=== PATIENT | male | born 1955 | race Caucasian/White ===

== ENCOUNTER → 2019-05-19 | Outpatient (CLI) | payer OTHER | END | disposition home or self-care (01) | LOC: OIH 10:25 | PROVIDERS: ATTEND Internal Medicine Cardiovascular Disease | DX: R91.1 Solitary pulmonary nodule (principal); R06.00 Dyspnea, unspecified | CPT/HCPCS: 71046 ==

== ENCOUNTER 2022-06-17 08:04 | Day surgery (SDC) | payer MEDICARE ==
[~2022-06-17] VITALS: Ht 188 cm; Wt 139.4 kg
[2022-06-17 09:27] LABS: BASOPHILS % (AUTO) 0.6 % (0.0-5.0); EOSINOPHILS % (AUTO) 1.2 % (0.0-8.0); HEMATOCRIT 45.8 % (42-54); MEAN CORPUSCULAR HEMOGLOBIN 34.3 pg (27.0-33.0); MEAN CORPUSCULAR HGB CONC 31.4 g/dL (32.0-36.0); MONOCYTES % (AUTO) 10.2 % (3.0-13.0); NEUTROPHILS % (AUTO) 76.3 % (40.0-77.0); PLATELET COUNT (AUTO) 160 K/uL (130-400); RED CELL DISTRIBUTION WIDTH 14.6 % (11.0-15.5); WHITE BLOOD COUNT (AUTO) 6.8 K/uL (4.8-10.8)
[2022-06-17 09:36] LABS: POTASSIUM 5.3 mmol/L (3.5-5.1)
[2022-06-17 09:38] LABS: CREATININE 8.8 mg/dL (0.5-1.5)
[2022-06-17 09:48] LABS: INR 0.99 (0.85-1.15); PROTHROMBIN TIME 10.8 SEC (9.6-11.6)
[2022-06-17 09:57] LABS: B-TYPE NATRIURETIC PEPTIDE 89 pg/mL (0-100)
[2022-06-17 10:17] VITALS: BP 143/72
[2022-06-17] MEDS ORDERED: LANT500T2 PO (14:11)
[2022-06-17] MEDS ORDERED: ASPI-1197 PO (14:11)
[2022-06-17] MEDS ORDERED: ATOR-2 PO (14:11)
[2022-06-17] MEDS ORDERED: TRAM100T40 PO (14:11)
[2022-06-17] MEDS ORDERED: ISOS30TA11 PO (14:11)
[2022-06-17] MEDS ORDERED: BUME2TAB5 PO (14:11)
[2022-06-17] MEDS ORDERED: CETI10TA57 PO (14:11)
[2022-06-17] MEDS ORDERED: UBID10CA6 PO (14:11)
[2022-06-17] MEDS ORDERED: FOLI0.8T2 PO (14:11)
[2022-06-17] MEDS ORDERED: GABA-529 PO (14:11)
[2022-06-17] MEDS ORDERED: INSLAN SQ (14:11)
[2022-06-17] MEDS ORDERED: L.AC1CAP6 PO (14:11)
[2022-06-17] MEDS ORDERED: OMEP20CA12 PO (14:11)
[2022-06-17] MEDS ORDERED: [UNRECOGNIZED DRUG - CODE] SQ (14:11)
[2022-06-17] MEDS ORDERED: SEVE800T7 PO (14:11)
[2022-06-17] MEDS ORDERED: CLON0.5T4 PO (14:11)
[2022-06-17] MEDS ORDERED: SILD25TA PO (14:11)
[2022-06-17] MEDS ORDERED: INSU100V SQ (14:11)
[2022-06-17] MEDS ORDERED: CARB1TAB35 PO (14:11)
[2022-06-17] MEDS ORDERED: ALLO300T2 PO (14:11)
[2022-06-17] MEDS ORDERED: ROPI4TAB6 PO (14:12)
[2022-06-19] VITALS (9 sets, daily range): BP systolic 112–148; BP diastolic 64–83
[2022-06-19] MEDS ORDERED: 0.9%NACL 1000ML 1,000 ML IV ONE (08:40)
[2022-06-19 08:50] LABS: CREATININE 7.7 mg/dL (0.5-1.5); POTASSIUM 4.6 mmol/L (3.5-5.1)
[2022-06-19] MEDS ORDERED: MELA1TAB28 PO (09:37)
[2022-06-19] MEDS ORDERED: LIDOCAINE HCL 400MG/20ML VIAL ONE (11:20)
[2022-06-19] MEDS ORDERED: IOHEXOL-350 75 ML VIAL IV ONE (11:20)
[2022-06-19] MEDS ORDERED: FENTANYL CITRATE PF 50 MCG/1 ML 2ML VIAL ONE (11:20)
[2022-06-19] MEDS ORDERED: HEPARIN 10,000 UNIT/10ML (1,000 UNIT/ML) VIAL ONE (11:20)
[2022-06-19] MEDS ORDERED: MIDAZOLAM HCL 1 MG/ML 2ML VIAL ONE (11:20)
[2022-06-19] MEDS ORDERED: SODIUM BICARB 50MEQ 50ML VIAL 50 ML ONE (11:20)
[2022-06-19] MEDS ORDERED: NITROGLYCERIN 50MG VIAL ONE (11:21)
[2022-06-19] MEDS ORDERED: IOHEXOL-350 50ML VIAL IV ONE (12:26)
== END 2022-06-19 19:00 | disposition home or self-care (01) ==
LOC: DAH 08:04
PROVIDERS: ATTEND Internal Medicine Cardiovascular Disease
DX: I35.0 Nonrheumatic aortic (valve) stenosis (principal); I25.119 Atherosclerotic heart disease of native coronary artery with unspecified angina pectoris; I27.20 Pulmonary hypertension, unspecified; I48.0 Paroxysmal atrial fibrillation; E11.22 Type 2 diabetes mellitus with diabetic chronic kidney disease; I13.2 Hypertensive heart and chronic kidney disease with heart failure and with stage 5 chronic kidney disease, or end stage renal disease; N18.6 End stage renal disease; I50.42 Chronic combined systolic (congestive) and diastolic (congestive) heart failure; E11.42 Type 2 diabetes mellitus with diabetic polyneuropathy; E11.59 Type 2 diabetes mellitus with other circulatory complications; K21.9 Gastro-esophageal reflux disease without esophagitis; J44.9 Chronic obstructive pulmonary disease, unspecified; I87.2 Venous insufficiency (chronic) (peripheral); E66.9 Obesity, unspecified; Z79.899 Other long term (current) drug therapy; Z79.01 Long term (current) use of anticoagulants; Z99.2 Dependence on renal dialysis; Z79.4 Long term (current) use of insulin; Z79.82 Long term (current) use of aspirin; Z82.49 Family history of ischemic heart disease and other diseases of the circulatory system; Z83.3 Family history of diabetes mellitus; Z88.8 Allergy status to other drugs, medicaments and biological substances; Z72.89 Other problems related to lifestyle; Z68.41 Body mass index [BMI] 40.0-44.9, adult
CPT/HCPCS: 80048 ×2; 83880; 85025; 85610; 85730; 82948 ×2; 36415 ×2; 71045; 93005; 93460; 93571; 93572 ×2; C1769 ×2; C1887 ×2; C1894 ×3; C1760; J3010; J3490 ×3; J7030; J1644 ×2; J2250; Q9967 ×2; A4215; A4222; A4221; A4663; A4216; A4606; A4223 ×3; 99156; 99157

== ENCOUNTER 2022-07-08 06:26 | Day surgery (SDC) | payer MEDICARE ==
[2022-07-04 13:03] LABS: BASOPHILS % (AUTO) 0.6 % (0.0-5.0); EOSINOPHILS % (AUTO) 1.3 % (0.0-8.0); HEMATOCRIT 44.8 % (42-54); MEAN CORPUSCULAR HEMOGLOBIN 33.9 pg (27.0-33.0); MEAN CORPUSCULAR VOLUME 109.3 fL (79-99); MONOCYTES % (AUTO) 9.7 % (3.0-13.0); NEUTROPHILS % (AUTO) 73.2 % (40.0-77.0); PLATELET COUNT (AUTO) 166 K/uL (130-400); RED CELL DISTRIBUTION WIDTH 14.8 % (11.0-15.5); WHITE BLOOD COUNT (AUTO) 6.8 K/uL (4.8-10.8)
[2022-07-04 13:15] LABS: INR 0.98 (0.85-1.15); PROTHROMBIN TIME 10.7 SEC (9.6-11.6)
[2022-07-04 13:16] LABS: POTASSIUM 4.5 mmol/L (3.5-5.1)
[2022-07-04 13:17] LABS: PARTIAL THROMBOPLASTIN TIME 28.5 SEC (26.3-35.5)
[2022-07-04 13:34] LABS: B-TYPE NATRIURETIC PEPTIDE 101 pg/mL (0-100); CREATININE 10.2 mg/dL (0.5-1.5)
[~2022-07-08] VITALS: Ht 190.5 cm; Wt 68.8 kg
[2022-07-08] VITALS (11 sets, daily range): BP systolic 101–143; BP diastolic 65–81
[~2022-07-08 06:26] MED LIST: ALLO300T2 PO; ASPI-1197 PO; ATOR-2 PO; BUME2TAB5 PO; CARB1TAB35 PO; CETI10TA57 PO; CLON0.5T4 PO; FOLI0.8T2 PO; GABA-529 PO; INSLAN SQ; INSU100V SQ; ISOS30TA11 PO; L.AC1CAP6 PO; LANT500T2 PO; MELA1TAB28 PO; OMEP20CA12 PO; ROPI4TAB6 PO; SEVE800T7 PO; SILD25TA PO; TRAM100T40 PO; UBID10CA6 PO; [UNRECOGNIZED DRUG - CODE] SQ
[2022-07-08] MEDS ORDERED: 0.9%NACL 1000ML 1,000 ML IV ONE (07:08)
[2022-07-08] MEDS ORDERED: BIVALIRUDIN 250 MG/VIAL IV ONE (08:48)
[2022-07-08] MEDS ORDERED: HEPARIN 10,000 UNIT/10ML (1,000 UNIT/ML) VIAL ONE ×2 (08:48→09:50)
[2022-07-08] MEDS ORDERED: IOHEXOL 350 MG/ML 100ML INFUS..BTL IV ONE ×2 (08:48→10:38)
[2022-07-08] MEDS ORDERED: LIDOCAINE HCL 400MG/20ML VIAL ONE (08:48)
[2022-07-08] MEDS ORDERED: IOHEXOL-350 50ML VIAL IV ONE (08:48)
[2022-07-08] MEDS ORDERED: FENTANYL CITRATE PF 50 MCG/1 ML 2ML VIAL ONE (08:51)
[2022-07-08] MEDS ORDERED: MIDAZOLAM HCL 1 MG/ML 2ML VIAL ONE (08:52)
[2022-07-08] MEDS ORDERED: TICAGRELOR 90 MG TABLET ONE (09:53)
[2022-07-08] MEDS ORDERED: CLOPIDOGREL 300MG TAB PO SCH (11:30)
[2022-07-08] MEDS ORDERED: AEC81 PO (11:36)
[2022-07-08] MEDS ORDERED: CLOP75TA32 PO (11:36)
[2022-07-08] MEDS ORDERED: FAMO40TA7 PO (11:36)
[2022-07-09] MEDS ORDERED: ASPIRIN 81MG CHEW TAB PO SCH (09:00)
[2022-07-09] MEDS ORDERED: CLOPIDOGREL 75MG TAB PO SCH (09:00)
== END 2022-07-08 15:59 | disposition home or self-care (01) ==
LOC: DAH 06:26
PROVIDERS: ATTEND Internal Medicine Cardiovascular Disease
DX: I35.0 Nonrheumatic aortic (valve) stenosis (principal); I25.110 Atherosclerotic heart disease of native coronary artery with unstable angina pectoris; E11.22 Type 2 diabetes mellitus with diabetic chronic kidney disease; I13.2 Hypertensive heart and chronic kidney disease with heart failure and with stage 5 chronic kidney disease, or end stage renal disease; N18.6 End stage renal disease; I50.32 Chronic diastolic (congestive) heart failure; J44.9 Chronic obstructive pulmonary disease, unspecified; E66.01 Morbid (severe) obesity due to excess calories; I48.0 Paroxysmal atrial fibrillation; K21.9 Gastro-esophageal reflux disease without esophagitis; I87.2 Venous insufficiency (chronic) (peripheral); Z98.52 Vasectomy status; Z95.5 Presence of coronary angioplasty implant and graft; Z99.2 Dependence on renal dialysis; Z98.84 Bariatric surgery status; Z72.89 Other problems related to lifestyle; Z68.41 Body mass index [BMI] 40.0-44.9, adult; Z98.890 Other specified postprocedural states; Z79.01 Long term (current) use of anticoagulants; Z79.899 Other long term (current) drug therapy; Z79.82 Long term (current) use of aspirin; Z82.49 Family history of ischemic heart disease and other diseases of the circulatory system; Z83.3 Family history of diabetes mellitus
CPT/HCPCS: 80048; 83880; 85025; 85610; 85730; 36415; 71045; 93005; 92978; 0715T; 85347; 82948; C1761 ×3; A4223 ×3; C1887; C1894 ×3; C1760; C1753; C1874 ×3; C1769; Q9965 ×3; J3010; J3490; J7030; J1644 ×3; J2250; Q9967 ×2; A4215; A4222; A4221; A4663; A4216; A4606; C9600; 99156; 99157; J0583

== ENCOUNTER 2023-03-25 08:23 | Emergency (ER) | payer MEDICARE ==
[~2023-03-25] VITALS: Ht 188 cm; Wt 153.8 kg
[~2023-03-25 08:23] MED LIST changes: +AEC81 PO; -ASPI-1197 PO; +CALC667T6 PO; -CLON0.5T4 PO; +CLOP75TA32 PO; +FAMO40TA7 PO; -INSU100V SQ; -L.AC1CAP6 PO; +LANT10005 PO; -LANT500T2 PO; -MELA1TAB28 PO; -OMEP20CA12 PO; +ROPI4TAB41 PO; -ROPI4TAB6 PO; -SEVE800T7 PO; -SILD25TA PO; -TRAM100T40 PO; -UBID10CA6 PO; -[UNRECOGNIZED DRUG - CODE] SQ
[2023-03-25 08:54] LABS: HEMATOCRIT 39.9 % (42-54); MEAN CORPUSCULAR HEMOGLOBIN 31.5 pg (27.0-33.0); MEAN CORPUSCULAR HGB CONC 31.1 g/dL (32.0-36.0); MEAN CORPUSCULAR VOLUME 101.3 fL (79-99); NUCLEATED RED BLOOD CELLS 0.8 % (0.0-0.19); RED BLOOD CELL COUNT(AUTO) 3.94 MIL/uL (4.50-6.20); RED CELL DISTRIBUTION WIDTH 16.4 % (11.0-15.5); WHITE BLOOD COUNT (AUTO) 9.2 K/uL (4.8-10.8)
[2023-03-25] MEDS ORDERED: ALBUTEROL 0.083% 2.5 MG/3 ML INH IH ONE (09:00)
[2023-03-25] MEDS: SODIUM BICARB 50MEQ 50ML VIAL IV ONE ×2 (09:01→10:00)
[2023-03-25] MEDS: CALCIUM GLUC 1GM/10ML VIAL IVPB SCH ×2 (09:03→10:00)
[2023-03-25] MEDS: DEXTROSE 50%-WATER 50 ML DISP.SYRIN IV ONE ×2 (09:04→09:59)
[2023-03-25] MEDS: INSULIN HUMULIN R 100 UNIT/ML 3ML SQ ONE ×2 (09:04→10:00)
[2023-03-25 09:15] VITALS: PULSE 76; RESP 21
[2023-03-25 09:20] LABS: CREATININE 9.4 mg/dL (0.5-1.5); POTASSIUM 4.4 mmol/L (3.5-5.1); THYROID STIMULATING HORMONE 2.03 uIU/mL (0.36-3.74)
[2023-03-25 09:49] VITALS: BP 95/44; PULSE 86; RESP 20; O2SAT 99
[2023-03-26] MEDS ORDERED: DIPH25CA53 PO (10:46)
[2023-03-26] MEDS ORDERED: CARB-38 PO (10:46)
[2023-03-26] MEDS ORDERED: CALC0.5C11 PO (10:46)
[2023-03-26] MEDS ORDERED: ALLO300T2 PO (10:46)
[2023-03-26] MEDS ORDERED: SACC250C3 PO (10:46)
== END 2023-03-25 10:16 | disposition home or self-care (01) ==
LOC: EDH 08:23
DX: I12.0 Hypertensive chronic kidney disease with stage 5 chronic kidney disease or end stage renal disease (principal); E11.22 Type 2 diabetes mellitus with diabetic chronic kidney disease; N18.6 End stage renal disease; I48.91 Unspecified atrial fibrillation; E78.00 Pure hypercholesterolemia, unspecified; Z99.2 Dependence on renal dialysis; Z79.82 Long term (current) use of aspirin; Z79.899 Other long term (current) drug therapy; Z88.6 Allergy status to analgesic agent; Z98.890 Other specified postprocedural states
CPT/HCPCS: 99284; 84443; 83735; 80048; 85027; 36415; 94640; J1815; J0610; J3490; J7070

== ENCOUNTER 2023-04-28 13:39 | Inpatient (IN) | payer MEDICARE ==
[~2023-04-28] VITALS: Ht 188 cm; Wt 159.3 kg
[~2023-04-28 13:39] MED LIST changes: +CALC0.5C11 PO; -CALC667T6 PO; +CARB-38 PO; -CARB1TAB35 PO; +DIPH25CA53 PO; -ISOS30TA11 PO; +SACC250C3 PO
[2023-04-28 15:42] VITALS: BP 148/64; PULSE 70; RESP 20
[2023-04-28 16:03] VITALS: O2SAT 97
[2023-04-28] MEDS ORDERED: GUAIFENESIN SUGAR-FREE 100 MG/5 ML UDCUP PO PRN (16:30)
[2023-04-28] MEDS ORDERED: ALPRAZOLAM 0.5 MG TABLET PO PRN (16:30)
[2023-04-28] MEDS ORDERED: BENZOCAINE/MENTH/CETYLPYRD CL 1 EACH LOZENGE MM PRN (16:30)
[2023-04-28] MEDS ORDERED: ACETAMINOPHEN 325 MG TAB PO PRN ×2 (16:30)
[2023-04-28] MEDS ORDERED: DiphenhydrAMINE HCL 50 MG/ML VIAL IV PRN (16:30)
[2023-04-28] MEDS ORDERED: VANCOMYCIN PROTOCOL PER PHARMACY IV SCH (16:30)
[2023-04-28] MEDS ORDERED: ZOLPIDEM TARTRATE 5 MG TAB PO PRN (16:30)
[2023-04-28] MEDS ORDERED: GUAIFENESIN-DM 200/20 MG 10 ML PO PRN (16:30)
[2023-04-28] MEDS ORDERED: HYDRALAZINE 25MG TABLET PO PRN (16:30)
[2023-04-28] MEDS ORDERED: ONDANSETRON 4MG INJ IV PRN (16:30)
[2023-04-28] MEDS ORDERED: DIPHENHYDRAMINE HCL 25 MG CAPSULE PO PRN (16:30)
[2023-04-28] MEDS: INSULIN HUMULIN R 100 UNIT/ML 3ML SQ SCH (16:30)
[2023-04-28] MEDS ORDERED: POLYETHYLENE GLYCOL 3350 17 GM POWD.PACK PO PRN (16:30)
[2023-04-28] MEDS ORDERED: NITROGLYCERIN 0.4 MG SL TAB SL PRN (16:30)
[2023-04-28] MEDS ORDERED: PHARMACY COMMUNICATION MISC SCH (17:00)
[2023-04-28 17:27] LABS: BASOPHILS # (AUTO) 0.04 K/uL (0.00-0.20); BASOPHILS % (AUTO) 0.8 % (0.0-5.0); EOSINOPHILS # (AUTO) 0.07 K/uL (0.00-0.70); EOSINOPHILS % (AUTO) 1.5 % (0.0-8.0); HEMATOCRIT 32.9 % (42-54); IMMATURE GRANULOCYTE ABSOLUTE 0.05 K/uL (0-1); LYMPHOCYTES # (AUTO) 1.4 K/uL (1.0-4.8); LYMPHOCYTES % (AUTO) 28.5 % (21.0-51.0); MEAN CORPUSCULAR HEMOGLOBIN 32.9 pg (27.0-33.0); MEAN CORPUSCULAR HGB CONC 29.2 g/dL (32.0-36.0); MEAN CORPUSCULAR VOLUME 112.7 fL (79-99); MONOCYTES # (AUTO) 0.6 K/uL (0.1-1.0); MONOCYTES % (AUTO) 12.9 % (3.0-13.0); NEUTROPHILS # (AUTO) 2.6 K/uL (1.8-7.7); NEUTROPHILS % (AUTO) 55.2 % (40.0-77.0); PLATELET COUNT (AUTO) 112 K/uL (130-400); RED BLOOD CELL COUNT(AUTO) 2.92 MIL/uL (4.50-6.20); RED CELL DISTRIBUTION WIDTH 22.4 % (11.0-15.5); WHITE BLOOD COUNT (AUTO) 4.7 K/uL (4.8-10.8)
[2023-04-28 17:45] LABS: ALBUMIN 2.7 g/dL (3.5-5.0); BILIRUBIN,TOTAL 0.7 mg/dL (0.2-1.0); CREATININE 6.8 mg/dL (0.5-1.5); MAGNESIUM 2.3 mg/dL (1.80-2.40); POTASSIUM 4.7 mmol/L (3.5-5.1); TOTAL PROTEIN, SERUM 5.9 g/dL (6.0-8.3)
[2023-04-28] MEDS: ZOSYN 3.375GM +NS 50ML IV SCH (17:56)
[2023-04-28] MEDS: VANCOMYCIN 2GM/500 ML BAG 500 ML IV ONE (18:13)
[2023-04-28 19:54] VITALS: BP 169/81; PULSE 72; RESP 19
[2023-04-28 20:00] VITALS: O2SAT 99
[2023-04-28] MEDS: MIDODRINE HCL 5 MG TABLET PO SCH (20:00)
[2023-04-28] MEDS: ENOXAPARIN SODIUM 30 MG/0.3 ML SQ SCH (20:14)
[2023-04-28] MEDS: FAMOTIDINE 20MG VIAL IV SCH (20:14)
[2023-04-28] MEDS: METOPROLOL SUCCINATE 25 MG TAB.SR.24H PO SCH (20:14)
[2023-04-28] MEDS: ENOXAPARIN SODIUM 120 MG/0.8ML SQ SCH (20:15)
[2023-04-28] MEDS: CARBIDOPA LEVO PO SCH (20:18)
[2023-04-28] MEDS: GABAPENTIN 100 MG CAPSULE PO SCH (20:18)
[2023-04-28 20:40] LABS: ABG BASE EXCESS 0.3 mmol/L (-2.0-3.0); ABG HCO3 26.4 mmol/L (21.0-28.0); ABG OXYGEN SATURATION 92.3 % (95.0-99.0); ABG PCO2 49 mmHg (35-48); ABG PH 7.348 (7.35-7.450); CARBON MONOXIDE 1.1; HHb 7.6; PO2, ARTERIAL BG 69.1 mmHg (83.0-108.0); VENT MODE, BG RA,21 (ROOM AIR)
[2023-04-28] MEDS ORDERED: GABAPENTIN 300 MG CAPSULE PO SCH (21:00)
[2023-04-28 23:47] VITALS: BP 105/45; PULSE 70; RESP 14
[2023-04-29] VITALS (24 sets, daily range): BP systolic 110–137; BP diastolic 49–74; PULSE 64–85; RESP 14–30; TEMP 97.9; O2SAT 94–99
[2023-04-29 04:37] LABS: BASOPHILS # (AUTO) 0.04 K/uL (0.00-0.20); BASOPHILS % (AUTO) 0.9 % (0.0-5.0); EOSINOPHILS % (AUTO) 2.4 % (0.0-8.0); HEMATOCRIT 30.4 % (42-54); IMMATURE GRANULOCYTE ABSOLUTE 0.05 K/uL (0-1); LYMPHOCYTES # (AUTO) 1.1 K/uL (1.0-4.8); LYMPHOCYTES % (AUTO) 26.2 % (21.0-51.0); MEAN CORPUSCULAR HEMOGLOBIN 32.1 pg (27.0-33.0); MEAN CORPUSCULAR HGB CONC 29.6 g/dL (32.0-36.0); MEAN CORPUSCULAR VOLUME 108.6 fL (79-99); MONOCYTES # (AUTO) 0.6 K/uL (0.1-1.0); MONOCYTES % (AUTO) 13.7 % (3.0-13.0); NEUTROPHILS # (AUTO) 2.4 K/uL (1.8-7.7); NEUTROPHILS % (AUTO) 55.6 % (40.0-77.0); PLATELET COUNT (AUTO) 106 K/uL (130-400); RED CELL DISTRIBUTION WIDTH 21.9 % (11.0-15.5); WHITE BLOOD COUNT (AUTO) 4.2 K/uL (4.8-10.8)
[2023-04-29 04:47] LABS: CREATININE 7.4 mg/dL (0.5-1.5); POTASSIUM 4.6 mmol/L (3.5-5.1)
[2023-04-29 05:36] LABS: HEMATOCRIT 31.9 % (42-54); MEAN CORPUSCULAR HEMOGLOBIN 32.3 pg (27.0-33.0); MEAN CORPUSCULAR HGB CONC 29.8 g/dL (32.0-36.0); MEAN CORPUSCULAR VOLUME 108.5 fL (79-99); RED BLOOD CELL COUNT(AUTO) 2.94 MIL/uL (4.50-6.20); RED CELL DISTRIBUTION WIDTH 22.2 % (11.0-15.5)
[2023-04-29 05:44] LABS: INR 1.03 (0.85-1.15); PROTHROMBIN TIME 11.9 SEC (9.6-11.6)
[2023-04-29 05:45] LABS: PARTIAL THROMBOPLASTIN TIME 38.2 SEC (26.3-35.5)
[2023-04-29 05:50] LABS: ALBUMIN 2.6 g/dL (3.5-5.0); ASPARTATE AMINOTRANSFERASE 10 U/L (10-37); BILIRUBIN,TOTAL 0.7 mg/dL (0.2-1.0); CARBON DIOXIDE 31 mmol/L (21-32); CHLORIDE 101 mmol/L (101-111); CREATININE 7.3 mg/dL (0.5-1.5); GLOMERULAR FILTR. RATE CALC 8 mL/min (>90); GLUCOSE,RANDOM 126 mg/dL (70-105); POTASSIUM 4.7 mmol/L (3.5-5.1); SODIUM SERUM 138 mmol/L (136-145); TOTAL PROTEIN, SERUM 5.7 g/dL (6.0-8.3); UREA NITROGEN, BLOOD 31 mg/dL (7-18)
[2023-04-29 05:52] LABS: ALANINE AMINOTRANSFERASE < 6 U/L (12-78)
[2023-04-29] MEDS: ALLOPURINOL 300 MG TABLET PO SCH (08:51)
[2023-04-29] MEDS: CLOPIDOGREL 75MG TAB PO SCH (08:52)
[2023-04-29] MEDS: VANCOMYCIN 750MG VIAL IVPB SCH (18:13)
[2023-04-30] VITALS (10 sets, daily range): BP systolic 104–140; BP diastolic 40–75; PULSE 64–82; RESP 18–31; O2SAT 96–98
[2023-04-30 03:54] LABS: BASOPHILS # (AUTO) 0.06 K/uL (0.00-0.20); BASOPHILS % (AUTO) 1.6 % (0.0-5.0); EOSINOPHILS # (AUTO) 0.07 K/uL (0.00-0.70); EOSINOPHILS % (AUTO) 1.9 % (0.0-8.0); HEMATOCRIT 29.5 % (42-54); IMMATURE GRANULOCYTE ABSOLUTE 0.03 K/uL (0-1); LYMPHOCYTES # (AUTO) 0.8 K/uL (1.0-4.8); LYMPHOCYTES % (AUTO) 22.8 % (21.0-51.0); MEAN CORPUSCULAR HEMOGLOBIN 32.2 pg (27.0-33.0); MEAN CORPUSCULAR HGB CONC 29.5 g/dL (32.0-36.0); MEAN CORPUSCULAR VOLUME 109.3 fL (79-99); MONOCYTES # (AUTO) 0.6 K/uL (0.1-1.0); MONOCYTES % (AUTO) 16.5 % (3.0-13.0); NEUTROPHILS # (AUTO) 2.1 K/uL (1.8-7.7); NEUTROPHILS % (AUTO) 56.4 % (40.0-77.0); PLATELET COUNT (AUTO) 98 K/uL (130-400); RED CELL DISTRIBUTION WIDTH 21.6 % (11.0-15.5); WHITE BLOOD COUNT (AUTO) 3.6 K/uL (4.8-10.8)
[2023-05-01] VITALS (24 sets, daily range): BP systolic 110–156; BP diastolic 38–71; PULSE 62–86; RESP 14–24; TEMP 97.9–98; O2SAT 96–98
[2023-05-01 04:56] LABS: ABG BASE EXCESS 0.7 mmol/L (-2.0-3.0); ABG HCO3 24.8 mmol/L (21.0-28.0); ABG OXYGEN SATURATION 75.3 % (95.0-99.0); ABG PCO2 38 mmHg (35-48); ABG PH 7.433 (7.35-7.450); CARBON MONOXIDE 1.1; HHb 24.4; PO2, ARTERIAL BG < 45.0 mmHg (83.0-108.0)
[2023-05-01 05:02] LABS: HEMATOCRIT 29.6 % (42-54); MEAN CORPUSCULAR HGB CONC 31.1 g/dL (32.0-36.0); MEAN CORPUSCULAR VOLUME 106.1 fL (79-99); RED BLOOD CELL COUNT(AUTO) 2.79 MIL/uL (4.50-6.20); RED CELL DISTRIBUTION WIDTH 21.1 % (11.0-15.5); WHITE BLOOD COUNT (AUTO) 4.3 K/uL (4.8-10.8)
[2023-05-01 05:26] LABS: PHOSPHORUS 4.3 mg/dL (2.5-4.9); POTASSIUM 4.4 mmol/L (3.5-5.1); VANCOMYCIN TROUGH 19.9 UG/ML (10.0-20.0)
[2023-05-01 05:27] LABS: CREATININE 8.3 mg/dL (0.5-1.5)
[2023-05-01] MEDS: FOLIC ACID 1 MG TABLET PO SCH (10:02)
[2023-05-01] MEDS: CYANOCOBALAMIN (VITAMIN B-12) 1,000 MCG TABLET PO SCH (10:04)
[2023-05-01] MEDS ORDERED: LIDOCAINE HCL 400MG/20ML VIAL ONE (15:17)
[2023-05-01] MEDS ORDERED: SODIUM BICARB 50MEQ 50ML VIAL 0 ML ONE (15:17)
[2023-05-01] MEDS ORDERED: IODIXANOL 320 MG/ML 100 ML VIAL ONE (15:17)
[2023-05-01] MEDS: VANCOMYCIN 1G/250ML KIT 250 ML IV SCH (21:10)
[2023-05-02] VITALS (11 sets, daily range): BP systolic 96–150; BP diastolic 48–81; PULSE 45–87; RESP 12–24; O2SAT 97
[2023-05-02 03:38] LABS: HEMATOCRIT 29.9 % (42-54); MEAN CORPUSCULAR HEMOGLOBIN 33.1 pg (27.0-33.0); MEAN CORPUSCULAR HGB CONC 30.8 g/dL (32.0-36.0); MEAN CORPUSCULAR VOLUME 107.6 fL (79-99); RED BLOOD CELL COUNT(AUTO) 2.78 MIL/uL (4.50-6.20); RED CELL DISTRIBUTION WIDTH 20.9 % (11.0-15.5); WHITE BLOOD COUNT (AUTO) 3.9 K/uL (4.8-10.8)
[2023-05-02 03:51] LABS: PHOSPHORUS 3.9 mg/dL (2.5-4.9); POTASSIUM 3.8 mmol/L (3.5-5.1)
[2023-05-03] VITALS (9 sets, daily range): BP systolic 97–121; BP diastolic 44–85; PULSE 63–73; RESP 16–22; O2SAT 97–99
[2023-05-04] VITALS (31 sets, daily range): BP systolic 72–149; BP diastolic 31–82; PULSE 40–78; RESP 14–22; TEMP 98.2–98.6; O2SAT 94–97
[2023-05-04 03:55] LABS: HEMATOCRIT 29.1 % (42-54); MEAN CORPUSCULAR HEMOGLOBIN 32.4 pg (27.0-33.0); MEAN CORPUSCULAR HGB CONC 30.2 g/dL (32.0-36.0); RED BLOOD CELL COUNT(AUTO) 2.72 MIL/uL (4.50-6.20); RED CELL DISTRIBUTION WIDTH 20.4 % (11.0-15.5); WHITE BLOOD COUNT (AUTO) 4.5 K/uL (4.8-10.8)
[2023-05-04 04:01] LABS: INR 0.96 (0.85-1.15); PROTHROMBIN TIME 11.2 SEC (9.6-11.6)
[2023-05-04 04:09] LABS: MAGNESIUM 2.2 mg/dL (1.80-2.40); PHOSPHORUS 5.3 mg/dL (2.5-4.9); POTASSIUM 4.1 mmol/L (3.5-5.1)
[2023-05-04 04:29] LABS: CREATININE 9.6 mg/dL (0.5-1.5)
[2023-05-04] MEDS: ASPIRIN 81 MG EC TAB PO SCH (10:00)
[2023-05-04] MEDS: TERBINAFINE HCL 15 GM TUBE TP SCH (10:30)
[2023-05-04] MEDS ORDERED: PERFLUTREN PROTEIN-A MICROSPHR 0.22 MG/ML VIAL IV ONE (14:00)
[2023-05-04] MEDS ORDERED: LIDOCAINE HCL 400MG/20ML VIAL ONE (16:53)
[2023-05-04] MEDS ORDERED: FENTANYL CITRATE PF 50 MCG/1 ML 2ML VIAL ONE (16:53)
[2023-05-04] MEDS ORDERED: SODIUM BICARB 50MEQ 50ML VIAL 50 ML ONE (16:53)
[2023-05-04] MEDS ORDERED: IODIXANOL 320 MG/ML 100 ML VIAL ONE (16:54)
[2023-05-04] MEDS ORDERED: MIDAZOLAM HCL 1 MG/ML 2ML VIAL ONE (16:54)
[2023-05-04] MEDS ORDERED: HEPARIN 10,000 UNIT/10ML (1,000 UNIT/ML) VIAL ONE (17:32)
[2023-05-05] VITALS (10 sets, daily range): BP systolic 112–142; BP diastolic 40–90; PULSE 59–78; RESP 18–24; O2SAT 94–98
[2023-05-05 04:06] LABS: BASOPHILS # (AUTO) 0.03 K/uL (0.00-0.20); BASOPHILS % (AUTO) 0.8 % (0.0-5.0); EOSINOPHILS # (AUTO) 0.09 K/uL (0.00-0.70); EOSINOPHILS % (AUTO) 2.5 % (0.0-8.0); HEMATOCRIT 29.7 % (42-54); IMMATURE GRANULOCYTE ABSOLUTE 0.02 K/uL (0-1); LYMPHOCYTES # (AUTO) 0.9 K/uL (1.0-4.8); LYMPHOCYTES % (AUTO) 23.2 % (21.0-51.0); MEAN CORPUSCULAR HEMOGLOBIN 32.4 pg (27.0-33.0); MEAN CORPUSCULAR HGB CONC 30.3 g/dL (32.0-36.0); MEAN CORPUSCULAR VOLUME 106.8 fL (79-99); MONOCYTES # (AUTO) 0.6 K/uL (0.1-1.0); MONOCYTES % (AUTO) 17.4 % (3.0-13.0); NEUTROPHILS % (AUTO) 55.6 % (40.0-77.0); PLATELET COUNT (AUTO) 115 K/uL (130-400); RED BLOOD CELL COUNT(AUTO) 2.78 MIL/uL (4.50-6.20); RED CELL DISTRIBUTION WIDTH 20.3 % (11.0-15.5); WHITE BLOOD COUNT (AUTO) 3.7 K/uL (4.8-10.8)
[2023-05-05 04:26] LABS: POTASSIUM 3.6 mmol/L (3.5-5.1)
[2023-05-05 04:52] LABS: CREATININE 8.4 mg/dL (0.5-1.5)
[2023-05-05] MEDS: MIDODRINE HCL 5 MG TABLET PO SCH (12:37)
[2023-05-05] MEDS: DOXYCYCLINE HYCLATE 100 MG TABLET PO SCH (19:56)
[2023-05-05] MEDS: APIXABAN 5 MG TABLET PO SCH (19:56)
[2023-05-06] VITALS (24 sets, daily range): BP systolic 118–178; BP diastolic 46–92; PULSE 58–72; RESP 14–22; TEMP 97.7–98.4; O2SAT 98
[2023-05-06 05:04] LABS: BASOPHILS # (AUTO) 0.02 K/uL (0.00-0.20); BASOPHILS % (AUTO) 0.5 % (0.0-5.0); EOSINOPHILS # (AUTO) 0.09 K/uL (0.00-0.70); EOSINOPHILS % (AUTO) 2.4 % (0.0-8.0); HEMATOCRIT 29.7 % (42-54); IMMATURE GRANULOCYTE ABSOLUTE 0.02 K/uL (0-1); LYMPHOCYTES # (AUTO) 0.8 K/uL (1.0-4.8); LYMPHOCYTES % (AUTO) 19.9 % (21.0-51.0); MEAN CORPUSCULAR HEMOGLOBIN 33.2 pg (27.0-33.0); MEAN CORPUSCULAR HGB CONC 30.3 g/dL (32.0-36.0); MEAN CORPUSCULAR VOLUME 109.6 fL (79-99); MONOCYTES # (AUTO) 0.6 K/uL (0.1-1.0); MONOCYTES % (AUTO) 16.7 % (3.0-13.0); NEUTROPHILS # (AUTO) 2.3 K/uL (1.8-7.7); PLATELET COUNT (AUTO) 110 K/uL (130-400); RED BLOOD CELL COUNT(AUTO) 2.71 MIL/uL (4.50-6.20); RED CELL DISTRIBUTION WIDTH 20.1 % (11.0-15.5); WHITE BLOOD COUNT (AUTO) 3.8 K/uL (4.8-10.8)
[2023-05-06 05:19] LABS: MAGNESIUM 2.3 mg/dL (1.80-2.40); PHOSPHORUS 5.4 mg/dL (2.5-4.9); POTASSIUM 4.1 mmol/L (3.5-5.1); VANCOMYCIN TROUGH 17.7 UG/ML (10.0-20.0)
[2023-05-06 05:25] LABS: CREATININE 10.5 mg/dL (0.5-1.5)
[2023-05-06] MEDS: LACTULOSE 20 GM/30 ML UDCUP PO PRN (08:01)
[2023-05-06] MEDS: DOCUSATE SODIUM 100 MG CAP PO PRN (08:01)
[2023-05-06] MEDS ORDERED: APIX5TAB PO (08:27)
[2023-05-06] MEDS ORDERED: CLOP-31 PO (08:27)
[2023-05-06] MEDS ORDERED: METO25TA3 PO (08:27)
[2023-05-06] MEDS: LOPERAMIDE HCL 2 MG CAP PO PRN (12:39)
[2023-05-06] MEDS ORDERED: DOXY100T2 PO (12:53)
== END 2023-05-06 18:25 | disposition home or self-care (01) | DRG 286 ==
LOC: EDH 13:39 → EDHIP 14:00 → 2CH 16:36 → 2DH 04-29 14:42
PROVIDERS: ADMIT Internal Medicine; ATTEND Internal Medicine
PROC: 5A09357 Assistance with Respiratory Ventilation, Less than 24 Consecutive Hours, Continuous Positive Airway Pressure (ICD-10-PCS; 2023-04-29)
PROC: 5A1D70Z Performance of Urinary Filtration, Intermittent, Less than 6 Hours Per Day (ICD-10-PCS; 2023-04-29)
PROC: 5A09357 Assistance with Respiratory Ventilation, Less than 24 Consecutive Hours, Continuous Positive Airway Pressure (ICD-10-PCS; 2023-04-30)
PROC: 5A09357 Assistance with Respiratory Ventilation, Less than 24 Consecutive Hours, Continuous Positive Airway Pressure (ICD-10-PCS; 2023-05-01)
PROC: 5A1D70Z Performance of Urinary Filtration, Intermittent, Less than 6 Hours Per Day (ICD-10-PCS; 2023-05-01)
PROC: 5A09357 Assistance with Respiratory Ventilation, Less than 24 Consecutive Hours, Continuous Positive Airway Pressure (ICD-10-PCS; 2023-05-02)
PROC: 4A023N6 Measurement of Cardiac Sampling and Pressure, Right Heart, Percutaneous Approach (ICD-10-PCS; principal; 2023-05-04)
PROC: B2111ZZ Fluoroscopy of Multiple Coronary Arteries using Low Osmolar Contrast (ICD-10-PCS; 2023-05-04)
PROC: B51D1ZZ Fluoroscopy of Bilateral Lower Extremity Veins using Low Osmolar Contrast (ICD-10-PCS; 2023-05-04)
PROC: 5A1D70Z Performance of Urinary Filtration, Intermittent, Less than 6 Hours Per Day (ICD-10-PCS; 2023-05-04)
PROC: 5A1D70Z Performance of Urinary Filtration, Intermittent, Less than 6 Hours Per Day (ICD-10-PCS; 2023-05-06)
DX: I13.2 Hypertensive heart and chronic kidney disease with heart failure and with stage 5 chronic kidney disease, or end stage renal disease (principal); I50.43 Acute on chronic combined systolic (congestive) and diastolic (congestive) heart failure; J96.01 Acute respiratory failure with hypoxia; J96.02 Acute respiratory failure with hypercapnia; N18.6 End stage renal disease; L03.116 Cellulitis of left lower limb; Z68.42 Body mass index [BMI] 45.0-49.9, adult; D61.818 Other pancytopenia; L03.115 Cellulitis of right lower limb; D68.69 Other thrombophilia; Z99.2 Dependence on renal dialysis; E11.22 Type 2 diabetes mellitus with diabetic chronic kidney disease; E66.01 Morbid (severe) obesity due to excess calories; J44.9 Chronic obstructive pulmonary disease, unspecified; K21.9 Gastro-esophageal reflux disease without esophagitis; I48.0 Paroxysmal atrial fibrillation; I35.0 Nonrheumatic aortic (valve) stenosis; I87.2 Venous insufficiency (chronic) (peripheral); E11.40 Type 2 diabetes mellitus with diabetic neuropathy, unspecified; E78.5 Hyperlipidemia, unspecified; I25.10 Atherosclerotic heart disease of native coronary artery without angina pectoris; G20.A1 Parkinson's disease without dyskinesia, without mention of fluctuations; I25.2 Old myocardial infarction; R62.7 Adult failure to thrive; I27.20 Pulmonary hypertension, unspecified; Z79.4 Long term (current) use of insulin; Z79.82 Long term (current) use of aspirin; Z82.49 Family history of ischemic heart disease and other diseases of the circulatory system; Z79.01 Long term (current) use of anticoagulants; Z79.899 Other long term (current) drug therapy; Z83.3 Family history of diabetes mellitus; Z86.718 Personal history of other venous thrombosis and embolism; Z87.891 Personal history of nicotine dependence; Z91.199 Patient's noncompliance with other medical treatment and regimen due to unspecified reason; Z95.2 Presence of prosthetic heart valve; Z95.5 Presence of coronary angioplasty implant and graft
CPT/HCPCS: 36005; 36415; 36600; 37252; 37253; 71045; 75822; 80048; 80053; 80202; 82306; 82435; 82533; 82607; 82746; 82803; 82947; 82948; 83036; 83540; 83605; 83735; 83880; 84100; 84132; 84295; 84443; 84484; 85018; 85025; 85027; 85378; 85610; 85730; 87040; 87070; 87340; 87641; 90935; 93451; 93925; 93970; 94660; A6248; C1769; C1894; C8929; G0378; J1644; J1650; J1815; J2250; J2543; J3010; J3370; J3490; Q9967; C1753; Q9956

== ENCOUNTER 2023-04-28 15:02 | Emergency (ER) | payer MEDICARE ==
[~2023-04-28] VITALS: Ht 188 cm; Wt 154.2 kg
[2023-04-28 15:04] VITALS: BP 134/81; PULSE 73; RESP 20
== END 2023-04-28 19:00 | disposition home or self-care (01) ==
LOC: EDH 15:02
DX: L03.90 Cellulitis, unspecified (principal); I95.9 Hypotension, unspecified; Z53.21 Procedure and treatment not carried out due to patient leaving prior to being seen by health care provider
CPT/HCPCS: 82948; 99281

== ENCOUNTER 2023-10-22 08:45 | Day surgery (SDC) | payer MEDICARE ==
[2023-10-22] VITALS (18 sets, daily range): BP systolic 101–142; BP diastolic 41–67; PULSE 64–76; RESP 13–23; TEMP 96.6–97.9
[~2023-10-22] VITALS: Ht 188 cm; Wt 153.7 kg
[~2023-10-22 08:45] MED LIST changes: -AEC81 PO; +APIX5TAB PO; -BUME2TAB5 PO; +CLOP-31 PO; +DOXY100T2 PO; +METO25TA3 PO
[2023-10-22] MEDS: 0.9%NACL 1000ML 1,000 ML IV ONE (09:30)
[2023-10-22] MEDS ORDERED: INSU100V45 SQ (10:09)
[2023-10-22] MEDS ORDERED: TRAM50TA4 PO (10:09)
[2023-10-22] MEDS ORDERED: SILD25TA PO (10:09)
[2023-10-22] MEDS ORDERED: [UNRECOGNIZED DRUG - CODE] IV (10:09)
[2023-10-22] MEDS ORDERED: SUCR500T PO (10:09)
[2023-10-22] MEDS ORDERED: SEVE800T7 PO (10:09)
[2023-10-22] MEDS ORDERED: MIDO10TA PO (10:09)
[2023-10-22] MEDS ORDERED: CLON0.5T4 PO (10:09)
[2023-10-22] MEDS ORDERED: DOXE4VIA IV (10:09)
[2023-10-22] MEDS ORDERED: CINA30 PO (10:09)
[2023-10-22] MEDS ORDERED: VIT-13 PO (10:09)
[2023-10-22] MEDS ORDERED: proPOFol 10 MG/ML 20ML VIAL IV ONE (10:55)
[2023-10-22] MEDS ORDERED: PHENYLEPHRINE HCL 10 MG/ML 1ML VIAL IV ONE (11:14)
[2023-10-22] MEDS: DEXTROSE 50%-WATER 50 ML DISP.SYRIN IV ONE (12:11)
== END 2023-10-22 13:20 | disposition home or self-care (01) ==
LOC: ENDO 08:45 → DAH 08:45 → ENDO 13:20
PROVIDERS: ATTEND Internal Medicine Gastroenterology
DX: R19.5 Other fecal abnormalities (principal); K57.30 Diverticulosis of large intestine without perforation or abscess without bleeding; K64.9 Unspecified hemorrhoids; I11.0 Hypertensive heart disease with heart failure; I50.9 Heart failure, unspecified; E03.9 Hypothyroidism, unspecified; I25.10 Atherosclerotic heart disease of native coronary artery without angina pectoris; M19.90 Unspecified osteoarthritis, unspecified site; Z79.01 Long term (current) use of anticoagulants; Z79.4 Long term (current) use of insulin; Z79.899 Other long term (current) drug therapy; Z98.41 Cataract extraction status, right eye; Z98.42 Cataract extraction status, left eye; Z98.890 Other specified postprocedural states; Z98.52 Vasectomy status; Z95.5 Presence of coronary angioplasty implant and graft; Z88.8 Allergy status to other drugs, medicaments and biological substances
CPT/HCPCS: 82948 ×3; J7030 ×2; J7070; J2704; J2371; A4620; G0121; A7002; 45378; J3490

== ENCOUNTER → 2023-11-09 | Outpatient (CLI) | payer MEDICARE ==
[~2023-11-09] MED LIST changes: -CALC0.5C11 PO; +CINA30 PO; +CLON0.5T4 PO; -CLOP75TA32 PO; -DIPH25CA53 PO; +DOXE4VIA IV; -DOXY100T2 PO; +INSU100V45 SQ; -LANT10005 PO; -METO25TA3 PO; +MIDO10TA PO; -SACC250C3 PO; +SEVE800T7 PO; +SILD25TA PO; +SUCR500T PO; +TRAM50TA4 PO; +VIT-13 PO; +[UNRECOGNIZED DRUG - CODE] IV
[2023-11-09 12:12] LABS: BASOPHILS # (AUTO) 0.05 K/uL (0.00-0.20); BASOPHILS % (AUTO) 0.6 % (0.0-5.0); EOSINOPHILS # (AUTO) 0.12 K/uL (0.00-0.70); EOSINOPHILS % (AUTO) 1.5 % (0.0-8.0); HEMATOCRIT 45.4 % (42-54); IMMATURE GRANULOCYTE ABSOLUTE 0.04 K/uL (0-1); LYMPHOCYTES # (AUTO) 1.4 K/uL (1.0-4.8); LYMPHOCYTES % (AUTO) 16.9 % (21.0-51.0); MEAN CORPUSCULAR HEMOGLOBIN 35.3 pg (27.0-33.0); MEAN CORPUSCULAR HGB CONC 31.1 g/dL (32.0-36.0); MEAN CORPUSCULAR VOLUME 113.8 fL (79-99); MONOCYTES # (AUTO) 0.8 K/uL (0.1-1.0); MONOCYTES % (AUTO) 10.3 % (3.0-13.0); NEUTROPHILS # (AUTO) 5.6 K/uL (1.8-7.7); NEUTROPHILS % (AUTO) 70.2 % (40.0-77.0); PLATELET COUNT (AUTO) 166 K/uL (130-400); RED BLOOD CELL COUNT(AUTO) 3.99 MIL/uL (4.50-6.20); RED CELL DISTRIBUTION WIDTH 15.7 % (11.0-15.5)
== END | disposition home or self-care (01) ==
LOC: LAB 09:27
PROVIDERS: ATTEND Internal Medicine Cardiovascular Disease
DX: I48.0 Paroxysmal atrial fibrillation (principal); I50.32 Chronic diastolic (congestive) heart failure
CPT/HCPCS: 36415; 85025

== ENCOUNTER → 2024-06-14 | Outpatient (CLI) | payer MEDICARE ==
[~2024-06-14] MED LIST changes: -MIDO10TA PO; +MIDO10TA3 PO
[2024-06-14 12:17] LABS: BASOPHILS # (AUTO) 0.05 K/uL (0.00-0.20); BASOPHILS % (AUTO) 0.6 % (0.0-5.0); EOSINOPHILS % (AUTO) 1.2 % (0.0-8.0); HEMATOCRIT 51.6 % (42-54); IMMATURE GRANULOCYTE ABSOLUTE 0.05 K/uL (0-1); LYMPHOCYTES # (AUTO) 1.2 K/uL (1.0-4.8); LYMPHOCYTES % (AUTO) 14.9 % (21.0-51.0); MEAN CORPUSCULAR HEMOGLOBIN 34.8 pg (27.0-33.0); MEAN CORPUSCULAR VOLUME 112.2 fL (79-99); NEUTROPHILS # (AUTO) 5.8 K/uL (1.8-7.7); NEUTROPHILS % (AUTO) 70.7 % (40.0-77.0); PLATELET COUNT (AUTO) 163 K/uL (130-400); RED CELL DISTRIBUTION WIDTH 16.2 % (11.0-15.5); WHITE BLOOD COUNT (AUTO) 8.2 K/uL (4.8-10.8)
== END | disposition home or self-care (01) ==
LOC: LAB 09:05
PROVIDERS: ATTEND Internal Medicine Cardiovascular Disease
DX: I13.2 Hypertensive heart and chronic kidney disease with heart failure and with stage 5 chronic kidney disease, or end stage renal disease (principal); E11.22 Type 2 diabetes mellitus with diabetic chronic kidney disease; N18.6 End stage renal disease; I50.42 Chronic combined systolic (congestive) and diastolic (congestive) heart failure; I48.91 Unspecified atrial fibrillation; Z99.2 Dependence on renal dialysis
CPT/HCPCS: 36415; 85025